=== PATIENT | female | born 2000 | race Caucasian/White ===

== ENCOUNTER 2025-07-24 09:16 | Outpatient (OUT) | payer OTHER, SELFPAY ==
--- OUTSIDE RECORDS SUMMARY | 2025-07-24 09:25 | XMS_ITS | Clinical Summary ---
Author Organization [facility] Address [address] [place] [address] Care Team Providers Care Center Manager Name Role Phone Unallocated, Frandy Provider Primary Care Provi marisol Allergies No known active allergies Medications Hospital, Clinic, or Other Facility Administered MedicationOrdered DoseRoute FrequencyStart DateEnd DateStatus Levonorgestrel intrauterine device 52 mg Indications:Encounter for IUD drwocxaof40 uoUELtqddnqtrj11/25/23130309/25/2029 Active Active Problems No known active problems Family History RelationNameStatusCommentsMotherAlive Social History Tobacco UseTypesPacks/DayYears UsedDateSmoking Tobacco: NeverSmokeless Tobacco: Never Tobacco Cessation:Counseling Given: Yes Alcohol UseStandard Drinks/WeekCommentsDefer0 (1 standard drink = 0.6 oz pure alcohol)CommentsUnknownSex and Gender InformationValueDate RecordedSex Assigned at BirthNot on fileLegal GmaOmcmwl33/15/2023 11:47 PM EDTGender IdentityNot on fileSexual OrientationNot on file Last Filed Vital Signs Vital SignReadingTime TakenCommentsBlood Paylvuxp034/7409/26/2024 3:00 PM EST Pulse--Temperature--Respiratory Rate--Oxygen Saturation--Inhaled Oxygen Concentration--Chgoyh360 kg (290 lb)09/26/2024 3:00 PM IXBKnocov631.6 cm (5' 4 ) 09/06/2024 1:18 PM ESTBody Mass Index49.78009/06/2024 1:18 PM EST Plan of Treatment Health MaintenanceDue DateLast DoneCommentsCOVID-19 Vaccine (2024- season) 2025Influenza Vaccine (#1)2025Pneumococcal Vaccine: Pediatrics (0 to 5 Years) and At-Risk Patients (6 to 64 Years)Aged OutNo longer eligible based on patient's age to complete this topic [place] [address] Care Teams Team MemberRelationshipSpecialtyStart DateEnd Date Unallocated, [facility] Provider, [address] [place], [place] [id number] PCP - GeneralFamily Medicine09/06/24
--- OUTSIDE RECORDS SUMMARY | 2025-07-24 09:25 | XMS_ITS | Patient Health Record ---
Author Organization [facility] Address [address] [place] [address] Care Team Providers Care Chicken And Fish Butcher Name Role Phone Shady Chowle Primary Care Provider Reason For Referral No Information Medications Medication SIG (Take, Route, Frequency, Duration) Notes Start Date End Date Status hydroCHLOROthiazide 12.5 MG Tablet 1 tab let in the morning Orally Once a day; Duration: 30 days 6Active Social History Tobacco Use: Social History Observation Description Date Details (start date - stop date) Never Smoker NA - NA Social History Food Insecurity ScreeningSocial InfoQuestionAnswerNotesFood Insecurity Screening Within the last 12 months, have you been worried about your food running out before you received money to buy more?NoWithin the last 12 months, did the food you buy not last, and you didn't have money to buy more?NoWithin the last 12 months, have you had any difficulty affording to eat balanced meals including all food groups (fruits, vegetables, protein, and whole grains)?NoDrug/Alcohol: Social InfoQuestionAnswerNotesAUDIT-C (Standard)Did you have a drink containing alcohol in the past year?Yes? How often did you have a drink containing alcohol in the past year?Monthly or less (1 point)? How many drinks did you have on a typical day when you were drinking in the past year?1 or 2 drinks (0 point)? How often did you have six or more drinks on one occasion in the past year?Never (0 point)Stlfjb4RlueemxjemwgejZatxpzjwGJZO-99 (2020 Edition)1. Have you used drugs other than those required for medical reasons?No2. Do you abuse more than one drug at a time?No3. Are you always able to stop using drugs when you want to?Yes 4. Have you had blackouts or flashbacks as a result of drug use?No5. Do you ever feel bad or guilty about your drug use?No6. Does your spouse (or parents) ever complain about your involvement with drugs?No7. Have you neglected your family because of your use of drugs?No8. Have you engaged in illegal activities in order to obtain drugs?No9. Have you ever experienced withdrawal symptoms (felt sick) when you stopped taking drugs?No10. Have you had medical problems as a result of your drug use (e.g., memory loss, hepatitis, convulsions, bleeding etc.)?NoResults:0Interpretation of Score:No problems reportedTobacco Use:Social InfoQuestionAnswerNotesTobacco Control (Standard)Tobacco use:Nonsmoker Problems Problem Type SNOMED Code ICD Code Onset Dates Problem Status W/U Status Risk Notes Problem Essential hypertension (82851000) Essenti al hypertension (I10) ActiveconfirmedProblemBody mass index 40+ - morbidly obese (434672810)Body mass index [BMI] 50.0-59.9, adult (Z68.43)ActiveconfirmedProblemBody mass index 30+ - obesity (finding) (811500891)Body mass index [BMI] 60.0-69.9, adult (Z68.44) ActiveconfirmedProblemObese class III (finding) (665360983)Obesity, class 3 (E66.813)Activeconfirmed Vital Signs Heart Rate 72 /min 07/09/2025 Respiratory Rate20 /min07/09/20258152Ylluobih51 %07/09/2025lood pressure diastolic 87 mm Hg07/09/20257798Rsgktd00 in07/09/2025lood pressure dhirurqp253 mm Hg 07/09/20251786Rowvzf844 lbs109/09/2024BMI51.19 kg/m207/09/2025 Encounters Encounter Location Date Provider Diagnosis [address] [address] 07/09/2025 Brooke Chow Screening for cardiovascular condition Z13.6 ; Screening for thyroid disorder Z13.29 ; Screening for diabetes mellitus Z13.1 ; Encounter for vitamin deficiency screening Z13.21 ; Obesity, class 3 E66.813 ; Body mass index [BMI] 50.0-59.9, adult Z68.43 and Essential hypertension I10 Assessments Encounter Date Diagnosis (ICD Code) Assessment Notes Treatment Notes Treatment Clinical Notes Section Notes 07/09/2025 Screening for thyroid disorder ( ICD-10 - Z13.29) 07/09/2025Screening for cardiovascular condition (ICD-10 - Z13.6)07/09/2025 Screening for diabetes mellitus (ICD-10 - Z13.1)07/09/2025Encounter for vitamin deficiency screening (ICD-10 - Z13.21)07/09/2025Obesity, class 3 (ICD-10 - E66.813) Blood pressure is elevated and being monitored as part of weight management. Adipex is contraindicated in patients with high blood pressure; blood pressure must be controlled before starting. - Recheck blood pressure during visit. - Monitor blood pressure before initiating Adipex. 07/09/2025ody mass index [BMI] 50.0-59.9, adult (ICD-10 - Z68.43) Patient is struggling with weight loss and actively seeking medication options. Obesity is being managed with consideration of GLP-1 medications and Adipex, pending lab results. Patient has researched compounded semaglutide and is willing to pay $200 per month. Labs are ordered to assess eligibility for weight loss medications. - Ordered A1C, kidney function panel, and thyroid panel to assess eligibility for weight loss medications. - Discussed starting Adipex for three months if blood pressure is controlled. - Discussed GLP-1 medications (semaglutide, Mounjaro, Ozempic, Wegovy) as options, pending lab results. - Will call patient with lab results and have prescription ready for pick-up if eligible. - Will check pharmacy pricing and consider compounded semaglutide if appropriate. 07/09/2025Essential hypertension (ICD-10 - I10) History of high blood pressure starting approximately four years ago after the of her oldest child. No current symptoms reported during the visit. Blood pressure to be rechecked during the visit to confirm ongoing management needs. - Ordered hydrochlorothiazide for blood pressure management. will see pt back in 4 weeks to see where bp is trending - Ordered CBC, CMP, thyroid panel, vitamin D, and A1C to assess baseline health and screen for contributing factors. Plan Of Treatment Pending Test Test Name Order Date Hemoglobin A1c 07/09/2025 Comprehensive Metabolic Panel 07/09/2025 Thyroid Stim Hormone w/Rflx 07/09/2025 Vitamin D 25 Hydroxy 07/09/2025 Complete Blood Count Auto Diff Insurance Providers Payer Name Payer Address Payer Phone Subscriber Number Group Number Insured Name Patient Relationship to Insured Coverage Start Date Coverage End Date [place] [employer] [address] [address] [place] [address] [id number] Marisabel HULL - patient is the [id number] 2024Wrap [facility] [address] [place] [id number], TATYANASelf - patient is the [id number] 2024 Medical (General) History Surgical History Surgery Date(Month/Year) C SECTION
[2025-07-24 11:44] LABS: Alanine Aminotransferase 21 U/L (14-59); Albumin Globulin Ratio 0.8; Albumin Level 3.4 g/dL (3.4-5.0); Alkaline Phosphatase 90 U/L (46-116); Anion Gap 14.7; Aspartate Amino Transferase 12 U/L (15-37); Blood Urea Nitrogen 12.0 mg/dL (7.0-18.0); Calcium 8.7 mg/dL (8.5-10.1); Carbon Dioxide 25.0 mmol/L (21.0-32.0); Chloride 106 mmol/L (98-107); Estimated GFR (African America >60 (>=60 mL/min/1.73m^2); Estimated GFR (Non-African Ame >60 (>=60 mL/min/1.73m^2); Globulin 4.2 g/dL; Glucose 99 mg/dL (74-106); Potassium 3.7 mmol/L (3.5-5.1); Sodium 142 mmol/L (136-145); TSH W/ REFLEX FT4 4.081 uIU/mL (0.358-3.740); Total Protein 7.6 g/dL (6.4-8.2)
== END 2025-07-24 09:17 | disposition home or self-care (01) ==
LOC: LAB 09:21
DX: Z13.6 Encounter for screening for cardiovascular disorders (principal); Z13.29 Encounter for screening for other suspected endocrine disorder; Z13.1 Encounter for screening for diabetes mellitus; Z13.21 Encounter for screening for nutritional disorder
CPT/HCPCS: 36415; 80053; 82306; 84439; 84443